=== PATIENT | female | born 1995 | race Caucasian/White ===

== ENCOUNTER 2022-07-17 14:26 | Emergency (ER) | payer MEDICAID, SELFPAY ==
[2022-07-17 14:31] VITALS: BP 112/71; PULSE 78; RESP 16; TEMP 36.6; O2SAT 98; BMI 22.0
--- NOTE | 2022-07-17 14:38 | XRR_ITS ---
PROCEDURE INFORMATION: Exam: XR Left Wrist Exam date and time: 07/17/2022 2:56 PM Age: 27 years old Clinical indication: Pain; Wrist; Right; Additional info: Pain with HX of fracture TECHNIQUE: Imaging protocol: Radiologic exam of the Left wrist. Views: 3 or more views. COMPARISON: No relevant prior studies available. FINDINGS: Bones/joints: Fracture through the mid waist of the scaphoid. There is no significant callus formation around the fracture line. Soft tissues: Normal. XR/XR wrist LT min 3V* [id number] IMPRESSION: Fracture through the mid waist of the scaphoid. No significant callus formation around the fracture. Correlate for chronicity of the fracture to indicate whether this would raise suspicion for nonunion.
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
[2022-07-17] MEDS: ketorolac 60 mg/2 mL INJ IM (16:00)
--- NOTE | 2022-07-18 10:28 | DCPLANNER ---
Addendum entered by Beth Apple 07/21/22 12:10: change control manager received the following message from the ortho clinic regarding follow up appointment: This was in review by providers and per Dr. Chew and Dr. Schwab - pt will need referred out to a hand specialist. I have asked Sindy to cancel appt and that let pt know will be contacted to get referred out. change control manager spoke with patient, she stated that she went to the [facility] - that clinic is referring patient to a hand specialist in [place], [place]. Original Note: change control manager had message to schedule a follow up appointment for patient with ortho. change control manager sent patients information to the front office staff at ortho. Patients information will be printed and reviewed. Clinic will call patient with appointment information.
== END 2022-07-17 16:16 | disposition home or self-care (01) ==
PROVIDERS: Emergency Provider Physician Assistant
DX: S62.002A Unspecified fracture of navicular [scaphoid] bone of left wrist, initial encounter for closed fracture (principal); W22.09XA Striking against other stationary object, initial encounter
CPT/HCPCS: 73110; 96372; 99284; J1885

== ENCOUNTER → 2022-08-09 16:53 | Outpatient (BNVA) | payer MEDICAID, SELFPAY | PROVIDERS: Visit Provider Nurse Practitioner Family | DX: M79.642 Pain in left hand (principal) | CPT/HCPCS: 73130 ==